=== PATIENT | male | born 1985 | race Caucasian/White ===

== ENCOUNTER 2021-06-06 09:44 | Emergency (ER) | payer BC ==
[~2021-06-06] VITALS: Ht 188 cm; Wt 136.1 kg
[2021-06-06 09:54] VITALS: BP 127/86
--- NOTE | 2021-06-06 10:00 | NUR ---
TRIAGED, PT RETURNED TO LOBBY
--- NOTE | 2021-06-06 10:54 | NUR ---
PT AMBUATED WITH EVEN AND STEADY GAIT TO BED 6
--- NOTE | 2021-06-06 11:00 | NUR ---
35 y/o male from home c/o right sided jaw pain and rt eye discomfort since yesterday. Pt has noticable right sided facial weakness, upper and lower extremities equal bilaterally. Pt states right eye watering more than left eye. States 4/10 pain at this time in jaw. Awake and alert. Has full range of motion in jaw. VSS medhx: denies
--- NOTE | 2021-06-06 11:36 | NUR ---
Dr Beck at bedside evaluating pt
--- NOTE | 2021-06-06 12:24 | NUR ---
Pt taken to CT via wheelchair
--- NOTE | 2021-06-06 13:22 | NUR ---
PT TAKEN TO CHAIR A.
[2021-06-06] MEDS ORDERED: GLYC15SO12 RIGHT EYE (14:05)
[2021-06-06] MEDS ORDERED: PRED20TA5 PO (14:05)
[2021-06-06] MEDS ORDERED: VALA1TAB2 PO (14:05)
[2021-06-06 14:17] VITALS: BP 127/86
--- NOTE | 2021-06-06 14:17 | NUR ---
Patient discharged with v/s stable. Written and verbal after care instructions given and explained. Patient alert, oriented and verbalized understanding of instructions. Ambulatory with steady gait. All questions addressed prior to discharge. ID band removed. Patient advised to follow up with PMD. Rx of artificial tears, prednisone, and valacyclovir given. Patient educated on indication of medication including possible reaction and side effects. Opportunity to ask questions provided and answered.
== END 2021-06-06 14:17 | disposition home or self-care (01) ==
LOC: MED 09:44
DX: G51.0 Bell's palsy (principal); Z79.899 Other long term (current) drug therapy
CPT/HCPCS: 70450; 99284